=== PATIENT | female | born 2000 | race Two or more races ===

== ENCOUNTER 2023-11-28 12:22 | Inpatient (IN) | payer OTHER ==
[2023-11-28] MEDS: ELECTROLYTE-148 SOLN 1,000 ML IV SCH (13:30)
[2023-11-28 14:05] VITALS: BMI 30.7
[2023-11-28 14:35] LABS: BASO % 0.6 % (0-2.0); EOS % 0.2 % (0-4.5); HEMATOCRIT 37.5 % (32.4-45.2); HEMOGLOBIN 12.3 GM/dL (10.7-15.3); LYMPH % 13.4 % (8-40); MCH 27.6 pg (25.7-33.7); MCHC 32.8 g/dl (32.0-36.0); MEAN CELL VOLUME 84.2 fl (80-96); MEAN PLT VOLUME 9.5 fl (7.5-11.1); MONO % 2.8 % (3.8-10.2); PLATELET COUNT 199 10^3/uL (134-434); RBC 4.46 M/mm3 (3.60-5.2); RDW 13.3 % (11.6-15.6); WHITE BLOOD COUNT 11.1 K/mm3 (4.0-10.0)
[2023-11-28 14:42] LABS: INR 0.89 (0.83-1.09); PROTHROMBIN TIME (PATIENT) 10.3 SEC (9.7-13.0)
[2023-11-28] MEDS ORDERED: FENTANYL/BUPIVACAINE/NS/PF - PCEA - 50 ML DISP.SYRIN EP ONE (14:47)
[2023-11-28] MEDS ORDERED: NALOXONE HCL 0.4 MG/ML VIAL IVPUSH PRN (14:48)
[2023-11-28] MEDS ORDERED: FENTANYL CITRATE/PF 50 MCG/ML VIAL ONE (14:50)
[2023-11-28 15:04] LABS: POTASSIUM 4.1 mmol/L (3.5-5.1)
[2023-11-28 15:05] LABS: CALCIUM 8.6 mg/dL (8.5-10.1)
[2023-11-28 15:06] LABS: BLOOD UREA NITROGEN 12.1 mg/dL (7-18)
[2023-11-28 15:09] LABS: CREATININE 0.5 mg/dL (0.55-1.3)
[2023-11-28] MEDS: FENTANYL/BUPIVACAINE/NS/PF - PCEA - 50 ML DISP.SYRIN EP SCH (15:10)
[2023-11-28] MEDS ORDERED: OXYTOCIN 20 UNITS in 0.9% NS 20 UNIT/1,000 ML INFUS.BAG IV ONE (15:50)
[2023-11-28] MEDS: OXYTOCIN 20 UNITS in 0.9% NS 20 UNIT/1,000 ML INFUS.BAG IV SCH (16:25)
[2023-11-28] MEDS ORDERED: BISACODYL 10 MG SUPP.RECT RC PRN (16:44)
[2023-11-28] MEDS ORDERED: ACETAMINOPHEN 325 MG TABLET (FP) PO PRN (16:44)
[2023-11-28] MEDS ORDERED: BENZOCAINE 20% 57 GM BOTTLE TP PRN (16:44)
[2023-11-28] MEDS ORDERED: BENZOCAINE 28 GM HEMORRHOIDAL OINTMENT TP PRN (16:44)
[2023-11-28] MEDS ORDERED: WITCH HAZEL 50% (TUCKS) 40 PAD/JAR PAD TP PRN (16:44)
[2023-11-28] MEDS ORDERED: oxyCODONE HCL 5 MG TABLET PO PRN (16:44)
[2023-11-28] MEDS ORDERED: METHYLERGONOVINE MALEATE 0.2 MG/1 ML AMP IM PRN (16:44)
[2023-11-28] MEDS: OXYTOCIN 30 UNITS in 0.9% NS 30 UNIT/500 ML INFUS.BAG IVPB SCH (17:17)
[2023-11-28 20:25] LABS: OPIATES, URI NEGATIVE (NEGATIVE); URINE AMPHETAMINES NEGATIVE (NEGATIVE)
[2023-11-28 20:26] LABS: METHADONE, UR NEGATIVE (NEGATIVE); URINE BARBITURATES NEGATIVE (NEGATIVE)
[2023-11-28 20:28] LABS: COCAINE, UR NEGATIVE (NEGATIVE); PHENCYCLIDINE,URINE NEGATIVE (NEGATIVE); URINE BENZODIAZEPINES NEGATIVE (NEGATIVE)
[2023-11-29 07:30] LABS: BASO % 0.2 % (0-2.0); EOS % 0.1 % (0-4.5); HEMATOCRIT 34.1 % (32.4-45.2); HEMOGLOBIN 11.5 GM/dL (10.7-15.3); LYMPH % 21.8 % (8-40); MCH 28.4 pg (25.7-33.7); MCHC 33.7 g/dl (32.0-36.0); MEAN CELL VOLUME 84.3 fl (80-96); MEAN PLT VOLUME 9.8 fl (7.5-11.1); MONO % 4.7 % (3.8-10.2); NEUT % 73.2 % (42.8-82.8); PLATELET COUNT 201 10^3/uL (134-434); RBC 4.05 M/mm3 (3.60-5.2); RDW 13.1 % (11.6-15.6); WHITE BLOOD COUNT 10.2 K/mm3 (4.0-10.0)
[2023-11-29] MEDS: FERROUS SO4 325 MG TABLET (FP) PO SCH (09:14)
[2023-11-29] MEDS: PRENATAL VITAMINS W/ FOLIC ACID TABLET (FP) PO SCH (09:14)
[2023-11-29] MEDS ORDERED: SENNOSIDES/DOCUSATE COMBO (SENNA PLUS) TABLET (UD) PO PRN (22:00)
[2023-11-30 08:17] VITALS: BP 114/72; PULSE 63; RESP 16; TEMP 98.2
[2023-11-30] MEDS: IBUPROFEN 600 MG TABLET (FP) PO PRN (10:04)
== END 2023-11-30 12:25 | disposition home or self-care (01) | DRG 560 ==
LOC: JDEL 12:22 → JLDR 13:20 → J3W 19:48
PROVIDERS: ADMIT Obstetrics & Gynecology; ATTEND Obstetrics & Gynecology
PROC: 10E0XZZ Delivery of Products of Conception, External Approach (ICD-10-PCS; principal; 2023-11-28)
PROC: 0W8NXZZ Division of Female Perineum, External Approach (ICD-10-PCS; 2023-11-28)
DX: O69.81X0 Labor and delivery complicated by cord around neck, without compression, not applicable or unspecified (principal); Z3A.39 39 weeks gestation of pregnancy; Z37.0 Single live birth
CPT/HCPCS: 36415; 59025; 80048; 80307; 85025; 85610; 85730; 86780; 86850; 86900; 86901